=== PATIENT | male | born 1965 | race Caucasian/White ===

== ENCOUNTER 2019-03-02 19:44 | Emergency (ER) | payer BC ==
[2019-03-02] MEDS ORDERED: Lidocaine 2% 10 ML Amp ONE (20:00)
--- NOTE | 2019-03-02 21:05 | EDM.PDOC ---
ED HPI GENERAL MEDICAL PROBLEM - General Chief Complaint: General Stated Complaint: BROKE FINGER Time Seen by Provider: 03/02/19 19:45 Source of Information: Reports: Patient History Limitations: Reports: No Limitations - History of Present Illness INITIAL COMMENTS - FREE TEXT/NARRATIVE: According to patient , he was working of roof of his house, slipped and fell down and landed on his right hand. dislocated his right 4th finger and c/o pain over the medial aspect of the hand. No other injuries. No head injury. He cam in immediately after the injury. Happened around 7:30Pm today. Onset: Today Onset Date: 03/02/19 Onset Time: 19:30 Location: Reports: Upper Extremity, Right Quality: Reports: Ache Severity: Moderate Improves with: Reports: Rest Worsens with: Reports: Movement Associated Symptoms: Denies: Confusion, Chest Pain, Cough, Diaphoresis, Fever/ Chills, Loss of Appetite, Malaise, Nausea/Vomiting, Rash, Seizure, Shortness of Breath, Syncope, Weakness - Related Data Allergies Allergy/AdvReac Type Severity Reaction Status Date / Time No Known Allergies Allergy Verified 03/02/19 20:01 Home Meds: Home Meds Albuterol [Ventolin HFA] 2 spray PO Q4HR PRN 03/02/19 [History] Past Medical History Respiratory History: Reports: Asthma, Bronchitis, Recurrent Gastrointestinal History: Reports: GERD - Infectious Disease History Infectious Disease History: Reports: Chicken Pox, Influenza, Pertussis ( Whooping Cough) - Past Surgical History HEENT Surgical History: Reports: Other (See Below) Other HEENT Surgeries/Procedures: deviated septum + surgery GI Surgical History: Reports: Other (See Below) Other GI Surgeries/Procedures: hiatal hernia. 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 Social & Family History - Family History Family Medical History: Noncontributory - Tobacco Use Smoking Status *Q: Never Smoker - Caffeine Use Caffeine Use: Reports: Coffee Other Caffeine Use: 8 cups a day of coffee, pop on weekends - Alcohol Use Days Per Week of Alcohol Use: 4 Number of Drinks Per Day: 2 Total Drinks Per Week: 8 - Recreational Drug Use Recreational Drug Use: No ED ROS GENERAL - Review of Systems Review Of Systems: See Below Constitutional: Denies: Fever, Chills, Malaise HEENT: Denies: Rhinitis, Throat Pain, Throat Swelling Respiratory: Denies: Cough, Sputum Cardiovascular: Denies: Chest Pain, Lightheadedness GI/Abdominal: Denies: Abdominal Pain, Nausea, Vomiting : Denies: Dysuria, Frequency Musculoskeletal: Reports: Hand Pain (right). Denies: Joint Pain, Joint Swelling Skin: Denies: Bruising, Pruritis, Rash ED EXAM, GENERAL - Physical Exam Exam: See Below Exam Limited By: No Limitations General Appearance: Alert, WD/WN, Mild Distress Ears: Normal External Exam, Normal Canal, Hearing Grossly Normal, Normal TMs Ear Exam: Bilateral Ear: Auricle Normal, Canal Normal, TM normal Nose: Normal Inspection, Normal Mucosa, No Blood Throat/Mouth: Normal Inspection, Normal Lips, Normal Teeth, Normal Gums, Normal Oropharynx, Normal Voice, No Airway Compromise Head: Atraumatic, Normocephalic Neck: Normal Inspection, Supple, Non-Tender, Full Range of Motion Respiratory/Chest: No Respiratory Distress, Lungs Clear, Normal Breath Sounds, No Accessory Muscle Use, Chest Non-Tender Cardiovascular: Normal Peripheral Pulses, Regular Rate, Rhythm, No Edema, No Gallop, No JVD, No Murmur, No Rub Extremities: Other (Right hand: ther is swelling noted over the ulnar aspect of the hand. Also very tender to palpation. Pt does have dislocated right fing finger at the PIP joitn and the distal finger is deviated ulnar side. very tender to palpation over the PIP joint.) Course - Vital Signs Text/Narrative:: X-ray of the hand was done, Which shows right 4th digit dislocation at the PIP joint, with no fracture. Also he has sustained a spiral fracture of the right 5th metacarpal bone. After the X-ray patient was reassured , and the ring finger was reduced. I have placed the right hand in Ulnar gutter splint. Post splint neurovascular exam normal. Splint precautions discussed with patient. I did consult Dr. Silva, Orthopedist attractions associate at [facility]. She recommends to keep the patient in splint and have him followup with his orthopedist in a week for possible surgical correction of the 5th metacarpal. Last Recorded V/S: Last Vital Signs Temp 98.4 F 03/02/19 19:50 Pulse 122 H 03/02/19 19:50 Resp 18 03/02/19 19:50 BP 122/83 03/02/19 19:50 Pulse Ox 93 L 03/02/19 19:50 - Orders/Labs/Meds Orders: Active Orders 24 hr Category Date Time Status Fingers Fourth Digit Rt F8 [CR] Stat Exams 03/02/19 20:00 Taken Fingers Fourth Digit Rt F8 [CR] Stat Exams 03/02/19 20:27 Taken Departure - Departure Time of Disposition: 21:00 Disposition: Home, Self-Care 01 Condition: Fair Clinical Impression: Dislocation, finger, interphalangeal joint, Closed fracture of 5th metacarpal - Discharge Information *PRESCRIPTION DRUG MONITORING PROGRAM REVIEWED*: Not Applicable *COPY OF PRESCRIPTION DRUG MONITORING REPORT IN PATIENT TAY: Not Applicable Instructions: Cast or Splint Care, Adult, [id number] Forms: ED Department Discharge Additional Instructions: Please follow up with your PCP/ previous surgeon within the next week. You may use Tylenol and ibuprofen for pain as directed. Remember to try and keep your hand elevated to help with pain and decrease throbbing. - Problem List & Annotations (1) Closed fracture of 5th metacarpal SNOMED Code(s): 927124234 Code(s): S62.308A - UNSP FRACTURE OF OTH METACARPAL BONE, INIT FOR CLOS FX Status: Acute (2) Dislocation, finger, interphalangeal joint SNOMED Code(s): 724518543 Code(s): S63.279A - DISLOCATION OF UNSP INTERPHALN JOINT OF UNSP FINGER, INIT Status: Acute - Problem List Review Problem List Initiated/Reviewed/Updated: Yes - My Orders Last 24 Hours: My Active Orders 03/02/19 20:00 Fingers Fourth Digit Rt F8 [CR] Stat 03/02/19 20:27 Fingers Fourth Digit Rt F8 [CR] Stat - Assessment/Plan Last 24 Hours: My Active Orders 03/02/19 20:00 Fingers Fourth Digit Rt F8 [CR] Stat 03/02/19 20:27 Fingers Fourth Digit Rt F8 [CR] Stat Assessment:: Closed fracture of the 5th metacarpal of right hand Right hand Ring finger dislocation at PIP joint- reduced Plan: X-ray of the hand was done, Which shows right 4th digit dislocation at the PIP joint, with no fracture. Also he has sustained a spiral fracture of the right 5th metacarpal bone. After the X-ray patient was reassured , and the ring finger was reduced. I have placed the right hand in Ulnar gutter splint. Post splint neurovascular exam normal. Splint precautions discussed with patient. I did consult Dr. Silva, Orthopedist attractions associate at [facility]. She recommends to keep the patient in splint and have him followup with his orthopedist in a week for possible surgical correction of the 5th metacarpal.
--- NOTE | 2019-03-04 08:43 | CR ---
Date of Service: 03/02/19 Clinical Data: twisted the finger RIGHT FOURTH DIGIT: There is dislocation of the PIP joint of the fourth digit with medial dislocation of the middle phalanx with respect to the head of the proximal phalanx. The patient is status post internal fixation of the fourth metacarpal. There is a displaced, oblique, acute fracture through the distal diaphysis of the fifth metacarpal. No other acute abnormalities. [id number] MTDD
--- NOTE | 2019-03-04 08:46 | CR ---
Date of Service: 03/02/19 Clinical Data: post reduction RIGHT FOURTH DIGIT: The dislocated PIP joint has been reduced. There is normal articular alignment. The exam is otherwise unchanged from the prior. [id number] [facility]
== END 2019-03-02 20:57 | disposition home or self-care (01) ==
LOC: LB.ED 19:44
DX: S63.284A Dislocation of proximal interphalangeal joint of right ring finger, initial encounter (principal); S62.326A Displaced fracture of shaft of fifth metacarpal bone, right hand, initial encounter for closed fracture; W13.2XXA Fall from, out of or through roof, initial encounter
CPT/HCPCS: 26770; 29125; 73140-F8; 99283-25